=== PATIENT | female | born 1935 | race Caucasian/White ===

== ENCOUNTER 2017-08-23 10:52 | Inpatient (IN) | payer MEDICARE ==
[~2017-08-23] VITALS: Ht 154.9 cm; Wt 44.9 kg
[2017-08-23 11:38] LABS: BASO # 0.1 x10^3/uL (0.0-0.2); BASO % 1 % (0-3); EOS # 0.2 x10^3/uL (0.0-0.7); EOS % 2 % (0-3); HEMATOCRIT 45.9 % (36.0-47.0); HEMOGLOBIN 15.2 g/dL (12.0-15.5); LYMPH % 9 % (24-48); MEAN CORPUSCULAR HEMOGLOBIN 29 pg (25-35); MEAN CORPUSCULAR HGB CONC 33 g/dL (31-37); MEAN CORPUSCULAR VOLUME 87 fL (79-100); MONO % 9 % (0-9); NEUT % 80 % (31-73); PLATELET COUNT 249 x10^3/uL (140-400); RED BLOOD COUNT 5.26 x10^6/uL (3.50-5.40); RED CELL DISTRIBUTION WIDTH 15.5 % (11.5-14.5); WHITE BLOOD COUNT 11.3 x10^3/uL (4.0-11.0)
[2017-08-23 11:49] LABS: ALBUMIN 3.5 g/dL (3.4-5.0); ALBUMIN/GLOBULIN RATIO 0.7 (1.0-1.7); CALCIUM 9.7 mg/dL (8.5-10.1); CREATININE 1.1 mg/dL (0.6-1.0); GFR 47.6; MAGNESIUM 2.1 mg/dL (1.8-2.4); POTASSIUM 3.7 mmol/L (3.5-5.1); TOTAL BILIRUBIN 0.3 mg/dL (0.2-1.0); TOTAL PROTEIN 8.2 g/dL (6.4-8.2)
[2017-08-23 12:14] LABS: BACTERIA,URINE FEW /HPF (0-FEW); BILIRUBIN,URINE NEG (NEG); CLARITY,URINE CLEAR; COLOR,URINE YELLOW; GLUCOSE,URINE NEG (NEG); NITRITE,URINE NEG (NEG); RBC,URINE 0 /HPF (0-2); SQUAMOUS EPITHELIAL CELL,UR FEW /LPF; UROBILINOGEN,URINE 0.2 mg/dL (0.2 mg/dL); WBC,URINE 0 /HPF (0-4)
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
--- NOTE | 2017-08-23 12:29 | EKG ---
[address] [address] Test Date: 2017-08-23 Test Time: 12:20:56 Pat Name: CIELO HELTON Department: Room: Gender: F Stereotyper Helper: : 1935 Requested By: KIMI COLEMAN Order Number: [id number] Reading MD: Nilesh Abdul MD Measurements Intervals [place] Rate: 86 P: 55 IN: 184 QRS: 45 QRSD: 78 T: 67 QT: 374 QTc: 451 Interpretive Statements SINUS RHYTHM VENTRICULAR PREMATURE COMPLEX(ES) Electronically Signed On 08-27-2017 17:10:27 CDL DRIVER by Nilesh Abdul MD
[2017-08-23 13:52] VITALS: BP 159/103
[2017-08-23] MEDS ORDERED: MAG HYDROX/AL HYDROX/SIMETH 30 ML ORAL.SUSP PO PRN (14:00)
[2017-08-23] MEDS ORDERED: MAGNESIUM HYDROXIDE 2,400 MG/30 ML ORAL.SUSP. PO PRN (14:00)
[2017-08-23] MEDS ORDERED: METHYL SALICYLATE/MENTHOL TOPICAL OINTMENT 29GM TUBE. TP PRN (14:00)
[2017-08-23] MEDS ORDERED: METO25TA4 PO (14:33)
[2017-08-23] MEDS ORDERED: DONE5TAB7 PO (14:33)
[2017-08-23] MEDS ORDERED: CALC-30 PO (14:33)
[2017-08-23] MEDS ORDERED: DILT180C29 PO (14:33)
[2017-08-23] MEDS ORDERED: SIMV40TA3 PO (14:33)
[2017-08-23] MEDS ORDERED: SERT50TA PO (14:33)
[2017-08-23] MEDS ORDERED: VITA100022 PO (14:33)
[2017-08-23] MEDS ORDERED: VITA1CAP5 PO (14:33)
[2017-08-23 16:22] VITALS: BP 142/85
[2017-08-23] MEDS: ATORVASTATIN CALCIUM 20 MG TABLET PO SCH (21:56)
[2017-08-23] MEDS: METOPROLOL TART IMMED RELEASE 25 MG TABLET PO SCH (21:57)
[2017-08-24 03:18] LABS: T3 TOTAL 111 ng/dL (71-180); THYROXINE 8.3 ug/dL (4.5-12.0)
[2017-08-24 05:57] VITALS: BP 145/80
[2017-08-24 06:08] LABS: HEMOGLOBIN A1C 5.8 % (4.8-5.6)
[2017-08-24] MEDS ORDERED: PNEUMOC CONJ VACC 23-VALENT 0.5 ML VIAL. VAX IM ONE (09:00)
[2017-08-24] MEDS: POTASSIUM GLUCONATE 99 MG PO SCH (09:39)
--- NOTE | 2017-08-24 09:39 | PDOC ---
Exam Note: Cameron Note: Please also refer to the separate dictated note~for this date of service dictated separately.~Patient seen individually. Discussed the patient with Nursing staff reviewed the chart.~Reviewed interim history and current functioning. Reviewed vital signs,~Labs/ Radiology~and current medications noted below. Continue current treatment with the changes noted in the dictated addendum note. This is a late entry for date of service August 23, 2017 Assessment: Vital Signs: VS - Last 72 Hours, by Label Date Time Temp Pulse Resp B/P (MAP) Pulse Ox O2 Delivery O2 Flow Rate FiO2 08/24/17 05:57 97.7 67 16 145/80 (101) 94 08/23/17 21:57 84 132/63 08/23/17 16:22 97.9 77 18 142/85 (104) 94 Room Air 08/23/17 13:52 98.0 83 16 159/103 (121) 95 Room Air 08/23/17 11:00 98.0 90 18 96 Room Air Vital Signs Date Time Temp Pulse Resp B/P (MAP) Pulse Ox O2 Delivery O2 Flow Rate FiO2 08/24/17 05:57 97.7 67 16 145/80 (101) 94 08/23/17 16:22 Room Air I&O Intake and Output 08/24/17 07:00 Intake Total 720 ml Balance 720 ml Intake Oral 720 ml Labs: Laboratory Tests Test 08/23/17 11:22 08/23/17 11:30 White Blood Count 11.3 x10^3/uL (4.0-11.0) H Red Blood Count 5.26 x10^6/uL (3.50-5.40) Hemoglobin 15.2 g/dL (12.0-15.5) Hematocrit 45.9 % (36.0-47.0) Mean Corpuscular Volume 87 fL (79-100) Mean Corpuscular Hemoglobin 29 pg (25-35) Mean Corpuscular Hemoglobin Concent 33 g/dL (31-37) Red Cell Distribution Width 15.5 % (11.5-14.5) H Platelet Count 249 x10^3/uL (140-400) Neutrophils (%) (Auto) 80 % (31-73) H Lymphocytes (%) (Auto) 9 % (24-48) L Monocytes (%) (Auto) 9 % (0-9) Eosinophils (%) (Auto) 2 % (0-3) Basophils (%) (Auto) 1 % (0-3) Neutrophils # (Auto) 9.0 x10^3uL (1.8-7.7) H Lymphocytes # (Auto) 1.0 x10^3/uL (1.0-4.8) Monocytes # (Auto) 1.0 x10^3/uL (0.0-1.1) Eosinophils # (Auto) 0.2 x10^3/uL (0.0-0.7) Basophils # (Auto) 0.1 x10^3/uL (0.0-0.2) Sodium Level 137 mmol/L (136-145) Potassium Level 3.7 mmol/L (3.5-5.1) Chloride Level 99 mmol/L (98-107) Carbon Dioxide Level 28 mmol/L (21-32) Anion Gap 10 (6-14) Blood Urea Nitrogen 17 mg/dL (7-20) Creatinine 1.1 mg/dL (0.6-1.0) H Estimated GFR (Cockcroft-Gault) 47.6 BUN/Creatinine Ratio 15 (6-20) Glucose Level 113 mg/dL (70-99) H Hemoglobin A1c 5.8 % (4.8-5.6) H Calcium Level 9.7 mg/dL (8.5-10.1) Magnesium Level 2.1 mg/dL (1.8-2.4) Total Bilirubin 0.3 mg/dL (0.2-1.0) Aspartate Amino Transferase (AST) 24 U/L (15-37) Alanine Aminotransferase (ALT) 24 U/L (14-59) Alkaline Phosphatase 86 U/L (46-116) Total Protein 8.2 g/dL (6.4-8.2) Albumin 3.5 g/dL (3.4-5.0) Albumin/Globulin Ratio 0.7 (1.0-1.7) L Thyroxine (T4) 8.3 ug/dL (4.5-12.0) Total Triiodothyronine (TT3) 111 ng/dL (71-180) Rapid Plasma Reagin Non reactive (Non Reactive) Urine Collection Type Unknown Urine Color Yellow Urine Clarity Clear Urine pH 7.0 Urine Specific [place] 1.020 Urine Protein 100 mg/dl (NEG-TRACE) Urine Glucose (UA) Neg mg/dL (NEG) Urine Ketones (Stick) Neg mg/dL (NEG) Urine Blood Neg (NEG) Urine Nitrite Neg (NEG) Urine Bilirubin Neg (NEG) Urine Urobilinogen Dipstick 0.2 mg/dL (0.2 mg/dL) Urine Leukocyte Esterase Neg (NEG) Urine RBC 0 /HPF (0-2) Urine WBC 0 /HPF (0-4) Urine Squamous Epithelial Cells Few /LPF Urine Bacteria Few /HPF (0-FEW) Current Medications: Meds: Current Medications Acetaminophen (Tylenol) 650 mg PRN Q6HRS PRN PO PAIN / TEMP; Start 08/23/17 at 14:00 Multi-Ingredient Ointment (Analgesic [place]) 1 tyrone PRN QID PRN TP MUSCLE PAIN; Start 08/23/17 at 14:00 Al Hydroxide/Mg Hydroxide (Mylanta Plus Xs) 15 ml PRN AFTMEALHC PRN PO DYSPEPSIA; Start 08/23/17 at 14:00 Magnesium Hydroxide (Milk Of Magnesia) 2,400 mg PRN QHS PRN PO CONSTIPATION; Start 08/23/17 at 14:00 Nicotine (Nicoderm Cq 21mg) 1 patch DAILY TD ; Start 08/24/17 at 09:00 Donepezil HCl (Aricept) 5 mg DAILY PO ; Start 08/24/17 at 09:00 Sertraline HCl (Zoloft) 50 mg DAILY PO ; Start 08/24/17 at 09:00 Pneumococcal Polyvalent Vaccine (Pneumovax 23) 0.5 ml ONCE ONCE VAX IM ; Start 08/24/17 at 09:00; Stop 08/24/17 at 09:01; Status DC Diltiazem HCl (Cardizem 24hr Cd) 180 mg DAILY PO ; Start 08/24/17 at 09:00 Metoprolol Tartrate (Lopressor) 25 mg BID PO Last administered on 08/23/17at 21: 57; Start 08/23/17 at 21:00 Atorvastatin Calcium (Lipitor) 20 mg QHS PO Last administered on 08/23/17at 21: 56; Start 08/23/17 at 21:00 Calcium/Vitamin D (Oscal D 500mg/ 200uts) 1 tab DAILY PO ; Start 08/24/17 at 09: 00 Vitamin B Complex 1 cap DAILY PO ; Start 08/24/17 at 09:00 Vitamin E 1,000 unit DAILY PO ; Start 08/24/17 at 09:00 Non-Formulary Medication 1 ea QODAY PO ; Start 08/24/17 at 09:00 Active Scripts Active Reported Calcium 500 + Vit D 400 Tablet (Calcium Carbonate/Vitamin D3) 1 Each Tablet 1 Each PO DAILY Vitamin E (Vitamin E Acetate) 1,000 Unit Capsule 1,000 Unit PO DAILY B Complex With Vitamin C (Vitamin B Complex & Vit C No.3) 1 Each Capsule 1 Each PO DAILY Simvastatin 40 Mg Tablet 40 Mg PO HS Diltiazem 24HR Cd (Diltiazem Hcl) 180 Mg Cap.er.24h 180 Mg PO DAILY Metoprolol Tartrate 25 Mg Tablet 25 Mg PO BID Zoloft (Sertraline Hcl) 50 Mg Tablet 50 Mg PO DAILY Donepezil Hcl 5 Mg Tablet 5 Mg PO DAILY I have reviewed the current psychotropics carefully including drug interactions. Risk benefit ratio favors no change other than as noted in my dictated progress note. Diagnosis: Problems: (1) Dementia (2) Aggressive behavior (3) Medical clearance for psychiatric admission (4) Dementia with behavioral disturbance (5) Anxiety disorder (6) Dementia in Alzheimer's disease with delusions (7) Dementia in Alzheimer's disease with depression (8) Dementia, vascular, with delusions (9) Dementia, vascular, with depression (10) Impulse control disorder ANTONIA GARRIDO MD Aug 24, 2017 09:39
[2017-08-24] MEDS: VITAMIN B COMPLEX CAPSULE. PO SCH (09:40)
[2017-08-24] MEDS: VITAMIN E 1,000 UNIT CAPSULE. PO SCH (09:40)
[2017-08-24] MEDS: DONEPEZIL HCL 5 MG TABLET. PO SCH (09:41)
[2017-08-24] MEDS: METOPROLOL TART IMMED RELEASE 25 MG TABLET PO SCH ×2 (09:42→20:50)
[2017-08-24] MEDS: CALCIUM CARB/VIT D3 500/200 TABLET PO SCH (09:42)
[2017-08-24] MEDS: SERTRALINE 50 MG TABLET. PO SCH (09:43)
[2017-08-24] MEDS: NICOTINE 21MG PATCH. TD SCH (09:43)
[2017-08-24 11:06] LABS: THYROID STIM HORMONE (TSH) 1.898 uIU/mL (0.358-3.740)
[2017-08-24 16:10] VITALS: BP 130/78
[2017-08-24] MEDS: ATORVASTATIN CALCIUM 20 MG TABLET PO SCH (20:49)
--- NOTE | 2017-08-24 22:16 | PDOC ---
Exam Note: Cameron Note: Please also refer to the separate dictated note~for this date of service dictated separately.~Patient seen individually. Discussed the patient with Nursing staff reviewed the chart.~Reviewed interim history and current functioning. Reviewed vital signs,~Labs/ Radiology~and current medications noted below. Continue current treatment with the changes noted in the dictated addendum note Assessment: Vital Signs: Vital Signs Date Time Temp Pulse Resp B/P (MAP) Pulse Ox O2 Delivery O2 Flow Rate FiO2 08/24/17 20:50 71 130/78 08/24/17 16:10 97.8 18 94 08/23/17 16:22 Room Air I&O Intake and Output 08/24/17 07:00 Intake Total 720 ml Balance 720 ml Intake Oral 720 ml Current Medications: Meds: Current Medications Acetaminophen (Tylenol) 650 mg PRN Q6HRS PRN PO PAIN / TEMP; Start 08/23/17 at 14:00 Multi-Ingredient Ointment (Analgesic [place]) 1 tyrone PRN QID PRN TP MUSCLE PAIN; Start 08/23/17 at 14:00 Al Hydroxide/Mg Hydroxide (Mylanta Plus Xs) 15 ml PRN AFTMEALHC PRN PO DYSPEPSIA; Start 08/23/17 at 14:00 Magnesium Hydroxide (Milk Of Magnesia) 2,400 mg PRN QHS PRN PO CONSTIPATION; Start 08/23/17 at 14:00 Nicotine (Nicoderm Cq 21mg) 1 patch DAILY TD Last administered on 08/24/17at 09: 43; Start 08/24/17 at 09:00 Donepezil HCl (Aricept) 5 mg DAILY PO Last administered on 08/24/17at 09:41; Start 08/24/17 at 09:00 Sertraline HCl (Zoloft) 50 mg DAILY PO Last administered on 08/24/17at 09:43; Start 08/24/17 at 09:00 Pneumococcal Polyvalent Vaccine (Pneumovax 23) 0.5 ml ONCE ONCE VAX IM ; Start 08/24/17 at 09:00; Stop 08/24/17 at 09:01; Status DC Diltiazem HCl (Cardizem 24hr Cd) 180 mg DAILY PO Last administered on at 09:41; Start 08/24/17 at 09:00 Metoprolol Tartrate (Lopressor) 25 mg BID PO Last administered on 08/24/17at 20: 50; Start 08/23/17 at 21:00 Atorvastatin Calcium (Lipitor) 20 mg QHS PO Last administered on 08/24/17at 20: 49; Start 08/23/17 at 21:00 Calcium/Vitamin D (Oscal D 500mg/ 200uts) 1 tab DAILY PO Last administered on at 09:42; Start 08/24/17 at 09:00 Vitamin B Complex 1 cap DAILY PO Last administered on 08/24/17at 09:40; Start at 09:00 Vitamin E 1,000 unit DAILY PO Last administered on 08/24/17at 09:40; Start 08/24 at 09:00 Non-Formulary Medication 1 ea QODAY PO Last administered on 08/24/17at 09:39; Start 08/24/17 at 09:00 Ferrous Sulfate (Feosol) 325 mg DAILYWBKFT PO ; Start 08/25/17 at 08:00 Active Scripts Active Reported Calcium 500 + Vit D 400 Tablet (Calcium Carbonate/Vitamin D3) 1 Each Tablet 1 Each PO DAILY Vitamin E (Vitamin E Acetate) 1,000 Unit Capsule 1,000 Unit PO DAILY B Complex With Vitamin C (Vitamin B Complex & Vit C No.3) 1 Each Capsule 1 Each PO DAILY Simvastatin 40 Mg Tablet 40 Mg PO HS Diltiazem 24HR Cd (Diltiazem Hcl) 180 Mg Cap.er.24h 180 Mg PO DAILY Metoprolol Tartrate 25 Mg Tablet 25 Mg PO BID Zoloft (Sertraline Hcl) 50 Mg Tablet 50 Mg PO DAILY Donepezil Hcl 5 Mg Tablet 5 Mg PO DAILY I have reviewed the current psychotropics carefully including drug interactions. Risk benefit ratio favors no change other than as noted in my dictated progress note. Diagnosis: Problems: (1) Dementia (2) Aggressive behavior (3) Medical clearance for psychiatric admission (4) Dementia with behavioral disturbance (5) Anxiety disorder (6) Dementia in Alzheimer's disease with delusions (7) Dementia in Alzheimer's disease with depression (8) Dementia, vascular, with delusions (9) Dementia, vascular, with depression (10) Impulse control disorder ANTONIA GARRIDO MD Aug 24, 2017 22:15
[2017-08-25] MEDS: ACETAMINOPHEN 325 MG TABLET PO PRN (02:50)
[2017-08-25 06:10] VITALS: BP 142/77
[2017-08-25] MEDS: DONEPEZIL HCL 5 MG TABLET. PO SCH (07:54)
[2017-08-25] MEDS: VITAMIN B COMPLEX CAPSULE. PO SCH (07:54)
[2017-08-25] MEDS: FERROUS SULFATE 325 MG TABLET. PO SCH (07:54)
[2017-08-25] MEDS: VITAMIN E 1,000 UNIT CAPSULE. PO SCH (07:54)
[2017-08-25] MEDS: METOPROLOL TART IMMED RELEASE 25 MG TABLET PO SCH ×3 (07:55→20:07)
[2017-08-25] MEDS: CALCIUM CARB/VIT D3 500/200 TABLET PO SCH (07:55)
[2017-08-25] MEDS: SERTRALINE 50 MG TABLET. PO SCH (07:55)
[2017-08-25] MEDS: NICOTINE 21MG PATCH. TD SCH (07:56)
[2017-08-25 08:05] VITALS: BP 124/80
[2017-08-25 12:05] VITALS: BP 144/77
[2017-08-25 16:12] VITALS: BP 155/83
--- NOTE | 2017-08-25 20:04 | PDOC ---
Exam Note: Cameron Note: Please also refer to the separate dictated note~for this date of service dictated separately.~Patient seen individually. Discussed the patient with Nursing staff reviewed the chart.~Reviewed interim history and current functioning. Reviewed vital signs,~Labs/ Radiology~and current medications noted below. Continue current treatment with the changes noted in the dictated addendum note Assessment: Vital Signs: Vital Signs Date Time Temp Pulse Resp B/P (MAP) Pulse Ox O2 Delivery O2 Flow Rate FiO2 08/25/17 16:12 97.8 66 18 155/83 (107) 94 Room Air I&O Intake and Output 08/25/17 07:00 Intake Total 960 ml Balance 960 ml Intake Oral 960 ml Current Medications: Meds: Current Medications Acetaminophen (Tylenol) 650 mg PRN Q6HRS PRN PO PAIN / TEMP Last administered on 08/25/17at 02:50; Start 08/23/17 at 14:00 Multi-Ingredient Ointment (Analgesic [place]) 1 tyrone PRN QID PRN TP MUSCLE PAIN; Start 08/23/17 at 14:00 Al Hydroxide/Mg Hydroxide (Mylanta Plus Xs) 15 ml PRN AFTMEALHC PRN PO DYSPEPSIA; Start 08/23/17 at 14:00 Magnesium Hydroxide (Milk Of Magnesia) 2,400 mg PRN QHS PRN PO CONSTIPATION; Start 08/23/17 at 14:00 Nicotine (Nicoderm Cq 21mg) 1 patch DAILY TD Last administered on 08/25/17at 07: 56; Start 08/24/17 at 09:00 Donepezil HCl (Aricept) 5 mg DAILY PO Last administered on 08/25/17at 07:54; Start 08/24/17 at 09:00 Sertraline HCl (Zoloft) 50 mg DAILY PO Last administered on 08/25/17at 07:55; Start 08/24/17 at 09:00; Stop 08/25/17 at 09:10; Status DC Pneumococcal Polyvalent Vaccine (Pneumovax 23) 0.5 ml ONCE ONCE VAX IM ; Start 08/24/17 at 09:00; Stop 08/24/17 at 09:01; Status DC Diltiazem HCl (Cardizem 24hr Cd) 180 mg DAILY PO Last administered on at 07:54; Start 08/24/17 at 09:00 Metoprolol Tartrate (Lopressor) 25 mg BID PO Last administered on 08/25/17at 12: 16; Start 08/23/17 at 21:00 Atorvastatin Calcium (Lipitor) 20 mg QHS PO Last administered on 08/24/17at 20: 49; Start 08/23/17 at 21:00 Calcium/Vitamin D (Oscal D 500mg/ 200uts) 1 tab DAILY PO Last administered on at 07:55; Start 08/24/17 at 09:00 Vitamin B Complex 1 cap DAILY PO Last administered on 08/25/17at 07:54; Start at 09:00 Vitamin E 1,000 unit DAILY PO Last administered on 08/25/17at 07:54; Start 08/24 at 09:00 Non-Formulary Medication 1 ea QODAY PO Last administered on 08/24/17at 09:39; Start 08/24/17 at 09:00 Ferrous Sulfate (Feosol) 325 mg DAILYWBKFT PO Last administered on 08/25/17at 07 :54; Start 08/25/17 at 08:00 Sertraline HCl (Zoloft) 75 mg DAILY PO ; Start 08/26/17 at 09:00 Active Scripts Active Reported Calcium 500 + Vit D 400 Tablet (Calcium Carbonate/Vitamin D3) 1 Each Tablet 1 Each PO DAILY Vitamin E (Vitamin E Acetate) 1,000 Unit Capsule 1,000 Unit PO DAILY B Complex With Vitamin C (Vitamin B Complex & Vit C No.3) 1 Each Capsule 1 Each PO DAILY Simvastatin 40 Mg Tablet 40 Mg PO HS Diltiazem 24HR Cd (Diltiazem Hcl) 180 Mg Cap.er.24h 180 Mg PO DAILY Metoprolol Tartrate 25 Mg Tablet 25 Mg PO BID Zoloft (Sertraline Hcl) 50 Mg Tablet 50 Mg PO DAILY Donepezil Hcl 5 Mg Tablet 5 Mg PO DAILY I have reviewed the current psychotropics carefully including drug interactions. Risk benefit ratio favors no change other than as noted in my dictated progress note. Diagnosis: Problems: (1) Dementia (2) Aggressive behavior (3) Dementia with behavioral disturbance (4) Anxiety disorder (5) Dementia in Alzheimer's disease with delusions (6) Dementia in Alzheimer's disease with depression (7) Dementia, vascular, with delusions (8) Dementia, vascular, with depression (9) Impulse control disorder ANTONIA GARRIDO MD Aug 25, 2017 20:04
[2017-08-25] MEDS: ATORVASTATIN CALCIUM 20 MG TABLET PO SCH (20:07)
--- NOTE | 2017-08-25 21:02 | PN ---
DATE: 08/24/2017 This note covers elements not covered in my initial note 08/24/2017. I met with the patient evening of 08/24/2017 in her room. She has been somewhat withdrawn, anxious, labile at times. REVIEW OF SYSTEMS: No CV, , pulmonary, eye, ENT system symptoms on review. Reliability poor. MENTAL STATUS EXAM: Oriented to herself. Insight, judgment, recent and remote memory, attention, concentration, fund of knowledge poor, consistent with her diagnosis mentioned in my initial note. IMPRESSION: Major neurocognitive disorder, Alzheimer, vascular with delusion, depression, behavioral disturbance. Rest unchanged. PLAN: Continue current psychotropics, Aricept and Zoloft. We will increase her Zoloft to 75 mg a day. MAN Christiane GARRIDO MD DR: CHRISTINA/carloz JOB#: [id number] / [id number]
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
[2017-08-26 06:01] VITALS: BP 154/88
[2017-08-26] MEDS: FERROUS SULFATE 325 MG TABLET. PO SCH (07:28)
[2017-08-26] MEDS: VITAMIN B COMPLEX CAPSULE. PO SCH (07:30)
[2017-08-26] MEDS: POTASSIUM GLUCONATE 99 MG PO SCH (07:30)
[2017-08-26] MEDS: VITAMIN E 1,000 UNIT CAPSULE. PO SCH (07:31)
[2017-08-26] MEDS: DONEPEZIL HCL 5 MG TABLET. PO SCH (07:31)
[2017-08-26] MEDS: CALCIUM CARB/VIT D3 500/200 TABLET PO SCH (07:32)
[2017-08-26] MEDS: METOPROLOL TART IMMED RELEASE 25 MG TABLET PO SCH ×2 (07:32→20:34)
[2017-08-26] MEDS: SERTRALINE 50 MG TABLET. PO SCH (07:33)
[2017-08-26] MEDS: NICOTINE 21MG PATCH. TD SCH (07:33)
[2017-08-26] MEDS ORDERED: PNEUMOC CONJ VACC 23-VALENT 0.5 ML VIAL. VAX IM ONE (09:45)
[2017-08-26 15:59] VITALS: BP 158/98
[2017-08-26] MEDS: CHOLECALCIFEROL (VITAMIN D3) 50,000 UNIT CAPSULE PO SCH (18:08)
--- NOTE | 2017-08-26 20:01 | PDOC ---
Exam Note: Cameron Note: Please also refer to the separate dictated note~for this date of service dictated separately.~Patient seen individually. Discussed the patient with Nursing staff reviewed the chart.~Reviewed interim history and current functioning. Reviewed vital signs,~Labs/ Radiology~and current medications noted below. Continue current treatment with the changes noted in the dictated addendum note Assessment: Vital Signs: Vital Signs Date Time Temp Pulse Resp B/P (MAP) Pulse Ox O2 Delivery O2 Flow Rate FiO2 08/26/17 15:59 97.3 68 20 158/98 (118) 96 08/25/17 16:12 Room Air I&O Intake and Output 08/26/17 07:00 Intake Total 1320 ml Balance 1320 ml Intake Oral 1320 ml # Voids 1 Current Medications: Meds: Current Medications Acetaminophen (Tylenol) 650 mg PRN Q6HRS PRN PO PAIN / TEMP Last administered on 08/25/17at 02:50; Start 08/23/17 at 14:00 Multi-Ingredient Ointment (Analgesic [place]) 1 tyrone PRN QID PRN TP MUSCLE PAIN; Start 08/23/17 at 14:00 Al Hydroxide/Mg Hydroxide (Mylanta Plus Xs) 15 ml PRN AFTMEALHC PRN PO DYSPEPSIA; Start 08/23/17 at 14:00 Magnesium Hydroxide (Milk Of Magnesia) 2,400 mg PRN QHS PRN PO CONSTIPATION; Start 08/23/17 at 14:00 Nicotine (Nicoderm Cq 21mg) 1 patch DAILY TD Last administered on 08/26/17at 07: 33; Start 08/24/17 at 09:00 Donepezil HCl (Aricept) 5 mg DAILY PO Last administered on 08/26/17at 07:31; Start 08/24/17 at 09:00 Sertraline HCl (Zoloft) 50 mg DAILY PO Last administered on 08/25/17at 07:55; Start 08/24/17 at 09:00; Stop 08/25/17 at 09:10; Status DC Pneumococcal Polyvalent Vaccine (Pneumovax 23) 0.5 ml ONCE ONCE VAX IM ; Start 08/24/17 at 09:00; Stop 08/24/17 at 09:01; Status DC Diltiazem HCl (Cardizem 24hr Cd) 180 mg DAILY PO Last administered on 07:31; Start 08/24/17 at 09:00 Metoprolol Tartrate (Lopressor) 25 mg BID PO Last administered on 08/26/17 07: 32; Start 08/23/17 at 21:00 Atorvastatin Calcium (Lipitor) 20 mg QHS PO Last administered on 08/25/17 20: 07; Start 08/23/17 at 21:00 Calcium/Vitamin D (Oscal D 500mg/ 200uts) 1 tab DAILY PO Last administered on 07:32; Start 08/24/17 at 09:00 Vitamin B Complex 1 cap DAILY PO Last administered on 08/26/17 07:30; Start at 09:00 Vitamin E 1,000 unit DAILY PO Last administered on 08/26/17 07:31; Start 08/24 at 09:00 Non-Formulary Medication 1 ea QODAY PO Last administered on 08/26/17 07:30; Start 08/24/17 at 09:00 Ferrous Sulfate (Feosol) 325 mg DAILYWBKFT PO Last administered on 08/26/17 07 :28; Start 08/25/17 at 08:00 Sertraline HCl (Zoloft) 75 mg DAILY PO Last administered on 08/26/17 07:33; Start 08/26/17 at 09:00 Pneumococcal Polyvalent Vaccine (Pneumovax 23) 0.5 ml ONCE ONCE VAX IM Last administered on 08/26/17 09:50; Start 08/26/17 at 09:45; Stop 08/26/17 at 09:46 ; Status DC Vitamin D (Vitamin D3) 50,000 unit WEEKLY PO Last administered on 08/26/17 18: 08; Start 08/26/17 at 18:00 Active Scripts Active Reported Calcium 500 + Vit D 400 Tablet (Calcium Carbonate/Vitamin D3) 1 Each Tablet 1 Each PO DAILY Vitamin E (Vitamin E Acetate) 1,000 Unit Capsule 1,000 Unit PO DAILY B Complex With Vitamin C (Vitamin B Complex & Vit C No.3) 1 Each Capsule 1 Each PO DAILY Simvastatin 40 Mg Tablet 40 Mg PO HS Diltiazem 24HR Cd (Diltiazem Hcl) 180 Mg Cap.er.24h 180 Mg PO DAILY Metoprolol Tartrate 25 Mg Tablet 25 Mg PO BID Zoloft (Sertraline Hcl) 50 Mg Tablet 50 Mg PO DAILY Donepezil Hcl 5 Mg Tablet 5 Mg PO DAILY I have reviewed the current psychotropics carefully including drug interactions. Risk benefit ratio favors no change other than as noted in my dictated progress note. Diagnosis: Problems: (1) Dementia (2) Aggressive behavior (3) Medical clearance for psychiatric admission (4) Dementia with behavioral disturbance (5) Anxiety disorder (6) Dementia in Alzheimer's disease with delusions (7) Dementia in Alzheimer's disease with depression (8) Dementia, vascular, with delusions (9) Dementia, vascular, with depression (10) Impulse control disorder ANTONIA GARRIDO MD Aug 26, 2017 20:01
[2017-08-26] MEDS: ATORVASTATIN CALCIUM 20 MG TABLET PO SCH (20:34)
[2017-08-27 06:12] VITALS: BP 180/93
[2017-08-27] MEDS: SERTRALINE 50 MG TABLET. PO SCH (08:24)
[2017-08-27] MEDS: VITAMIN E 1,000 UNIT CAPSULE. PO SCH (08:24)
[2017-08-27] MEDS: METOPROLOL TART IMMED RELEASE 25 MG TABLET PO SCH ×2 (08:24→20:47)
[2017-08-27] MEDS: FERROUS SULFATE 325 MG TABLET. PO SCH (08:24)
[2017-08-27] MEDS: VITAMIN B COMPLEX CAPSULE. PO SCH (08:24)
[2017-08-27] MEDS: CALCIUM CARB/VIT D3 500/200 TABLET PO SCH (08:24)
[2017-08-27] MEDS: DONEPEZIL HCL 5 MG TABLET. PO SCH (08:24)
[2017-08-27] MEDS: NICOTINE 21MG PATCH. TD SCH (08:25)
[2017-08-27] MEDS: ACETAMINOPHEN 325 MG TABLET PO PRN (08:37)
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
[2017-08-27 15:57] VITALS: BP 134/74
[2017-08-27] MEDS: ATORVASTATIN CALCIUM 20 MG TABLET PO SCH (20:47)
--- NOTE | 2017-08-28 00:35 | PN ---
DATE: 08/25/2017 This is a late entry for 08/25/2017 with the elements not covered in my initial note of 08/25/2017. SUBJECTIVE: I met with the patient the evening of 08/25/2017 in her room. She remains withdrawn, somewhat depressed, isolative, confused. REVIEW OF SYSTEMS: No CV, , pulmonary, eye, ENT system symptoms reviewed. Reliability poor. MENTAL STATUS EXAMINATION: Oriented to herself. Insight, judgment, recent and remote memory, attention, concentration, fund of knowledge poor, consistent with her diagnosis mentioned in my initial note. PLAN: Continue Aricept and Zoloft. We will increase these clinically ____ Seroquel if psychotic symptoms evident. ANTONIA GARRIDO MD DR: CHRISTINA/carloz JOB#: [id number] / [id number]
[2017-08-28 05:59] VITALS: BP 159/76
[2017-08-28] MEDS: CALCIUM CARB/VIT D3 500/200 TABLET PO SCH (08:02)
[2017-08-28] MEDS: FERROUS SULFATE 325 MG TABLET. PO SCH (08:03)
[2017-08-28] MEDS: VITAMIN B COMPLEX CAPSULE. PO SCH (08:03)
[2017-08-28] MEDS: NICOTINE 21MG PATCH. TD SCH (08:03)
[2017-08-28] MEDS: VITAMIN E 1,000 UNIT CAPSULE. PO SCH (08:03)
[2017-08-28] MEDS: DONEPEZIL HCL 5 MG TABLET. PO SCH (08:03)
[2017-08-28] MEDS: METOPROLOL TART IMMED RELEASE 25 MG TABLET PO SCH ×2 (08:03→20:01)
[2017-08-28] MEDS: SERTRALINE 50 MG TABLET. PO SCH (08:03)
[2017-08-28] MEDS: POTASSIUM GLUCONATE 99 MG PO SCH (08:06)
[2017-08-28 15:57] VITALS: BP 167/90
--- NOTE | 2017-08-28 16:47 | PN ---
DATE: 08/27/2017 SUBJECTIVE: The patient was seen today, met with the staff, chart reviewed. The patient's behavior remains the same, still withdrawn, increased sleep, depressed. No aggressive behaviors. OBSERVATION: VITAL SIGNS: Temperature 97.9, blood pressure 180/93, pulse 80, respiration 18, O2 sat 97%. Slept about 7 hours last night. The patient did not have any falls. No side effects to the medications. She is currently on Zoloft 75 mg daily and Aricept 5 mg daily. The patient's lab reviewed. ASSESSMENT: Major neurocognitive disorder, vascular with delusions, depression, and behavioral disturbances. PLAN: Continue with the treatment. GARRETT FERRARO MD DR: YONATHAN/carloz JOB#: [id number] / [id number]
[2017-08-28] MEDS: ATORVASTATIN CALCIUM 20 MG TABLET PO SCH (20:01)
[2017-08-28] MEDS: ACETAMINOPHEN 325 MG TABLET PO PRN (22:46)
[2017-08-29 06:04] VITALS: BP 162/77
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
[2017-08-29 07:25] LABS: BASO # 0.2 x10^3/uL (0.0-0.2); BASO % 2 % (0-3); EOS # 0.2 x10^3/uL (0.0-0.7); EOS % 3 % (0-3); HEMATOCRIT 41.5 % (36.0-47.0); HEMOGLOBIN 13.8 g/dL (12.0-15.5); LYMPH # 1.2 x10^3/uL (1.0-4.8); LYMPH % 13 % (24-48); MEAN CORPUSCULAR HEMOGLOBIN 29 pg (25-35); MEAN CORPUSCULAR HGB CONC 33 g/dL (31-37); MEAN CORPUSCULAR VOLUME 88 fL (79-100); MONO # 0.8 x10^3/uL (0.0-1.1); MONO % 9 % (0-9); NEUT # 6.5 x10^3uL (1.8-7.7); NEUT % 73 % (31-73); PLATELET COUNT 219 x10^3/uL (140-400); RED BLOOD COUNT 4.71 x10^6/uL (3.50-5.40); RED CELL DISTRIBUTION WIDTH 15.3 % (11.5-14.5)
[2017-08-29 07:45] LABS: ALBUMIN 2.8 g/dL (3.4-5.0); ALBUMIN/GLOBULIN RATIO 0.7 (1.0-1.7); CALCIUM 8.5 mg/dL (8.5-10.1); CREATININE 1.1 mg/dL (0.6-1.0); GFR 47.6; MAGNESIUM 1.9 mg/dL (1.8-2.4); POTASSIUM 3.9 mmol/L (3.5-5.1); TOTAL BILIRUBIN 0.3 mg/dL (0.2-1.0); TOTAL PROTEIN 6.7 g/dL (6.4-8.2)
[2017-08-29] MEDS: DONEPEZIL HCL 5 MG TABLET. PO SCH (08:04)
[2017-08-29] MEDS: FERROUS SULFATE 325 MG TABLET. PO SCH (08:04)
[2017-08-29] MEDS: VITAMIN B COMPLEX CAPSULE. PO SCH (08:04)
[2017-08-29] MEDS: CALCIUM CARB/VIT D3 500/200 TABLET PO SCH (08:05)
[2017-08-29] MEDS: SERTRALINE 50 MG TABLET. PO SCH (08:05)
[2017-08-29] MEDS: NICOTINE 21MG PATCH. TD SCH ×2 (08:06→08:17)
[2017-08-29] MEDS: METOPROLOL TART IMMED RELEASE 25 MG TABLET PO SCH ×2 (08:06→21:07)
[2017-08-29] MEDS: VITAMIN E 1,000 UNIT CAPSULE. PO SCH (08:08)
[2017-08-29] MEDS ORDERED: FLU VACC QS2017-18 (36MOS+)/PF 0.5 ML SYRINGE. VAX IM ONE (09:00)
[2017-08-29 16:01] VITALS: BP 149/83
[2017-08-29] MEDS: ATORVASTATIN CALCIUM 20 MG TABLET PO SCH (21:07)
[2017-08-30 06:10] VITALS: BP 131/82
[2017-08-30] MEDS: NICOTINE 21MG PATCH. TD SCH ×2 (09:00→09:45)
[2017-08-30] MEDS: CALCIUM CARB/VIT D3 500/200 TABLET PO SCH (09:45)
[2017-08-30] MEDS: VITAMIN B COMPLEX CAPSULE. PO SCH (09:46)
[2017-08-30] MEDS: VITAMIN E 1,000 UNIT CAPSULE. PO SCH (09:46)
[2017-08-30] MEDS: FERROUS SULFATE 325 MG TABLET. PO SCH (09:46)
[2017-08-30] MEDS: DONEPEZIL HCL 5 MG TABLET. PO SCH (09:46)
[2017-08-30] MEDS: METOPROLOL TART IMMED RELEASE 25 MG TABLET PO SCH ×2 (09:46→19:39)
[2017-08-30] MEDS: SERTRALINE 50 MG TABLET. PO SCH (09:47)
[2017-08-30] MEDS: POTASSIUM GLUCONATE 99 MG PO SCH (09:50)
--- NOTE | 2017-08-30 11:15 | PN ---
DATE: 08/29/2017 SUBJECTIVE: The patient was seen today, met with the staff, chart reviewed. The patient continues to show improvement, has been participating in activities, not exhibiting any side effects. The patient has not verbalized any aggressive behaviors. MEDICATIONS: The patient's current medications include Zoloft 75 mg daily and Aricept 5 mg daily. The patient's lab reviewed. IMPRESSION: Major neurocognitive disorder, vascular with delusions, depression and behavioral disturbances. PLAN: Continue with the treatment. The patient is planned for discharge next week, probably to [facility]. GARRETT FERRARO MD DR: YONATHAN/carloz JOB#: [id number] / [id number]
[2017-08-30 15:25] VITALS: BP 145/81
[2017-08-30] MEDS: ATORVASTATIN CALCIUM 20 MG TABLET PO SCH (19:38)
[2017-08-31 06:13] VITALS: BP 167/82
[2017-08-31] MEDS: DONEPEZIL HCL 5 MG TABLET. PO SCH (08:01)
[2017-08-31] MEDS: FERROUS SULFATE 325 MG TABLET. PO SCH (08:01)
[2017-08-31] MEDS: VITAMIN B COMPLEX CAPSULE. PO SCH (08:01)
[2017-08-31] MEDS: VITAMIN E 1,000 UNIT CAPSULE. PO SCH (08:01)
[2017-08-31] MEDS: SERTRALINE 50 MG TABLET. PO SCH (08:06)
[2017-08-31] MEDS: CALCIUM CARB/VIT D3 500/200 TABLET PO SCH (08:06)
[2017-08-31] MEDS: NICOTINE 21MG PATCH. TD SCH (08:06)
[2017-08-31] MEDS: METOPROLOL TART IMMED RELEASE 25 MG TABLET PO SCH ×2 (08:06→20:05)
--- NOTE | 2017-08-31 14:42 | PN ---
DATE: 08/30/2017 SUBJECTIVE: The patient was seen today, met with the staff, chart reviewed. The patient has been motivated and participating in activities, not presented with any major behavior problems. OBSERVATION: VITAL SIGNS: Temperature 98.1, blood pressure 131/82, pulse 70, respirations 16, O2 sat 95%. Slept about 7-1/2 hours last night. The patient's appetite has improved. MEDICATIONS: The patient's lab reviewed. Her current medications include Zoloft 75 mg daily and Aricept 5 mg daily. ASSESSMENT: Major neurocognitive disorder, vascular with delusions, depression, behavioral disturbances. PLAN: To continue with the treatment. The patient is planned for discharge next week to [facility]. GARRETT FERRARO MD DR: YONATHAN/nts JOB#: [id number] / [id number]
[2017-08-31 15:58] VITALS: BP 143/83
[2017-08-31] MEDS: ATORVASTATIN CALCIUM 20 MG TABLET PO SCH (20:05)
[2017-09-01 06:11] VITALS: BP 154/88
[2017-09-01] MEDS: FERROUS SULFATE 325 MG TABLET. PO SCH (07:56)
[2017-09-01] MEDS: POTASSIUM GLUCONATE 99 MG PO SCH (07:57)
[2017-09-01] MEDS: VITAMIN B COMPLEX CAPSULE. PO SCH (07:58)
[2017-09-01] MEDS: VITAMIN E 1,000 UNIT CAPSULE. PO SCH (07:58)
[2017-09-01] MEDS: DONEPEZIL HCL 5 MG TABLET. PO SCH (07:58)
[2017-09-01] MEDS: SERTRALINE 50 MG TABLET. PO SCH (07:59)
[2017-09-01] MEDS: CALCIUM CARB/VIT D3 500/200 TABLET PO SCH (07:59)
[2017-09-01] MEDS: METOPROLOL TART IMMED RELEASE 25 MG TABLET PO SCH ×2 (07:59→21:28)
[2017-09-01] MEDS: NICOTINE 21MG PATCH. TD SCH (08:00)
[2017-09-01 16:20] VITALS: BP 150/76
--- NOTE | 2017-09-01 20:00 | PDOC ---
Exam Note: Cameron Note: Please also refer to the separate dictated note~for this date of service dictated separately.~Patient seen individually. Discussed the patient with Nursing staff reviewed the chart.~Reviewed interim history and current functioning. Reviewed vital signs,~Labs/ Radiology~and current medications noted below. Continue current treatment with the changes noted in the dictated addendum note Assessment: Vital Signs: Vital Signs Date Time Temp Pulse Resp B/P (MAP) Pulse Ox O2 Delivery O2 Flow Rate FiO2 09/01/17 16:20 98.0 67 16 150/76 (100) 95 09/01/17 06:11 Room Air I&O Intake and Output 09/01/17 07:00 Intake Total 505 ml Balance 505 ml Intake Oral 505 ml # Bowel Movements 1 Current Medications: Meds: Current Medications Acetaminophen (Tylenol) 650 mg PRN Q6HRS PRN PO PAIN / TEMP Last administered on 08/28/17at 22:46; Start 08/23/17 at 14:00 Multi-Ingredient Ointment (Analgesic [place]) 1 tyrone PRN QID PRN TP MUSCLE PAIN; Start 08/23/17 at 14:00 Al Hydroxide/Mg Hydroxide (Mylanta Plus Xs) 15 ml PRN AFTMEALHC PRN PO DYSPEPSIA; Start 08/23/17 at 14:00 Magnesium Hydroxide (Milk Of Magnesia) 2,400 mg PRN QHS PRN PO CONSTIPATION; Start 08/23/17 at 14:00 Nicotine (Nicoderm Cq 21mg) 1 patch DAILY TD Last administered on 09/01/17at 08: 00; Start 08/24/17 at 09:00 Donepezil HCl (Aricept) 5 mg DAILY PO Last administered on 09/01/17at 07:58; Start 08/24/17 at 09:00 Sertraline HCl (Zoloft) 50 mg DAILY PO Last administered on 08/25/17at 07:55; Start 08/24/17 at 09:00; Stop 08/25/17 at 09:10; Status DC Pneumococcal Polyvalent Vaccine (Pneumovax 23) 0.5 ml ONCE ONCE VAX IM ; Start 08/24/17 at 09:00; Stop 08/24/17 at 09:01; Status DC Diltiazem HCl (Cardizem 24hr Cd) 180 mg DAILY PO Last administered on 08/29/17 08:06; Start 08/24/17 at 09:00; Stop 08/29/17 at 17:24; Status DC Metoprolol Tartrate (Lopressor) 25 mg BID PO Last administered on 09/01/17 07: 59; Start 08/23/17 at 21:00 Atorvastatin Calcium (Lipitor) 20 mg QHS PO Last administered on 08/31/17 20:05 ; Start 08/23/17 at 21:00 Calcium/Vitamin D (Oscal D 500mg/ 200uts) 1 tab DAILY PO Last administered on 07:59; Start 08/24/17 at 09:00 Vitamin B Complex 1 cap DAILY PO Last administered on 09/01/17 07:58; Start at 09:00 Vitamin E 1,000 unit DAILY PO Last administered on 09/01/17 07:58; Start at 09:00 Non-Formulary Medication 1 ea QODAY PO Last administered on 09/01/17 07:57; Start 08/24/17 at 09:00 Ferrous Sulfate (Feosol) 325 mg DAILYWBKFT PO Last administered on 09/01/17 07: 56; Start 08/25/17 at 08:00 Sertraline HCl (Zoloft) 75 mg DAILY PO Last administered on 09/01/17 07:59; Start 08/26/17 at 09:00 Pneumococcal Polyvalent Vaccine (Pneumovax 23) 0.5 ml ONCE ONCE VAX IM Last administered on 08/26/17 09:50; Start 08/26/17 at 09:45; Stop 08/26/17 at 09:46 ; Status DC Vitamin D (Vitamin D3) 50,000 unit WEEKLY PO Last administered on 08/26/17 18: 08; Start 08/26/17 at 18:00 Influenza Virus Vaccine Quadrival (Fluarix Quad [id number] Syringe) 0.5 ml ONCE ONCE VAX IM Last administered on 08/29/17 09:48; Start 08/29/17 at 09:00; Stop 08/29/17 at 09:01; Status DC Diltiazem HCl (Cardizem 24hr Cd) 240 mg DAILY PO Last administered on 09/01/17 07:58; Start 08/30/17 at 09:00 Active Scripts Active Reported Calcium 500 + Vit D 400 Tablet (Calcium Carbonate/Vitamin D3) 1 Each Tablet 1 Each PO DAILY Vitamin E (Vitamin E Acetate) 1,000 Unit Capsule 1,000 Unit PO DAILY B Complex With Vitamin C (Vitamin B Complex & Vit C No.3) 1 Each Capsule 1 Each PO DAILY Simvastatin 40 Mg Tablet 40 Mg PO HS Diltiazem 24HR Cd (Diltiazem Hcl) 180 Mg Cap.er.24h 180 Mg PO DAILY Metoprolol Tartrate 25 Mg Tablet 25 Mg PO BID Zoloft (Sertraline Hcl) 50 Mg Tablet 50 Mg PO DAILY Donepezil Hcl 5 Mg Tablet 5 Mg PO DAILY I have reviewed the current psychotropics carefully including drug interactions. Risk benefit ratio favors no change other than as noted in my dictated progress note. Diagnosis: Problems: (1) Dementia (2) Aggressive behavior (3) Dementia with behavioral disturbance (4) Anxiety disorder (5) Dementia in Alzheimer's disease with delusions (6) Dementia in Alzheimer's disease with depression (7) Dementia, vascular, with delusions (8) Dementia, vascular, with depression (9) Impulse control disorder ANTONIA GARRIDO MD Sep 01, 2017 20:00
[2017-09-01] MEDS: ATORVASTATIN CALCIUM 20 MG TABLET PO SCH (21:35)
--- NOTE | 2017-09-01 23:19 | PN ---
DATE: 08/31/2017 I am covering for Dr. Ellis. SUBJECTIVE: This is an 82-year-old female has had a history of dementia, but today she has been somewhat violent. Otherwise, she denies any medical complaints. She is calm and cooperative. OBJECTIVE: GENERAL: Well-developed, well-nourished white female, not in acute distress. VITAL SIGNS: Blood pressure 143/83, respiratory rate 18, pulse 77, temperature 97.4, oxygen saturation 95% on room air. HEENT: Normocephalic, atraumatic, otherwise unremarkable. NECK: Supple. Negative for carotid bruit, lymphadenopathy or thyromegaly. CHEST: Clear to A and P. CARDIOVASCULAR: Regular rhythm, normal S1, S2. ABDOMEN: Soft. Bowel sounds positive. EXTREMITIES: Negative for cyanosis, clubbing or pitting edema. NEUROLOGIC: The patient is alert to herself. Cranial nerves are intact. No focal motor or sensory deficit. Deep tendon reflexes were symmetric and hypoactive without pathology responses. IMPRESSION: Dementia, depression, behavioral disturbances, and sometimes delusion. Obsessive compulsive disorder, hypertension, hyperlipidemia, fracture of the hip, history of hypothyroidism, myocardial infarction and transient ischemic attack. RECOMMENDATIONS: Continue with current management initiated by Dr. Ellis and medications include Zoloft 75 mg daily and Aricept 5 mg daily. Will continue with current management initiated by Dr. Ellis. The patient has been scheduled for discharge next week. M David STERLING MD DR: EPI/carloz JOB#: [id number] / [id number]
[2017-09-02 06:06] VITALS: BP 181/96
[2017-09-02 08:03] VITALS: BP 166/89
[2017-09-02] MEDS: VITAMIN E 1,000 UNIT CAPSULE. PO SCH (08:10)
[2017-09-02] MEDS: CHOLECALCIFEROL (VITAMIN D3) 50,000 UNIT CAPSULE PO SCH (08:10)
[2017-09-02] MEDS: CALCIUM CARB/VIT D3 500/200 TABLET PO SCH (08:11)
[2017-09-02] MEDS: METOPROLOL TART IMMED RELEASE 25 MG TABLET PO SCH ×2 (08:11→20:33)
[2017-09-02] MEDS: DONEPEZIL HCL 5 MG TABLET. PO SCH (08:11)
[2017-09-02] MEDS: VITAMIN B COMPLEX CAPSULE. PO SCH (08:11)
[2017-09-02] MEDS: SERTRALINE 50 MG TABLET. PO SCH (08:11)
[2017-09-02] MEDS: FERROUS SULFATE 325 MG TABLET. PO SCH (08:11)
[2017-09-02] MEDS: NICOTINE 21MG PATCH. TD SCH (08:12)
[2017-09-02 16:25] VITALS: BP 133/73
[2017-09-02] MEDS: ATORVASTATIN CALCIUM 20 MG TABLET PO SCH (20:33)
--- NOTE | 2017-09-02 21:17 | PDOC ---
Exam Note: Cameron Note: Please also refer to the separate dictated note~for this date of service dictated separately.~Patient seen individually. Discussed the patient with Nursing staff reviewed the chart.~Reviewed interim history and current functioning. Reviewed vital signs,~Labs/ Radiology~and current medications noted below. Continue current treatment with the changes noted in the dictated addendum note Assessment: Vital Signs: Vital Signs Date Time Temp Pulse Resp B/P (MAP) Pulse Ox O2 Delivery O2 Flow Rate FiO2 09/02/17 20:33 65 133/73 09/02/17 16:25 97.1 18 95 09/01/17 06:11 Room Air I&O Intake and Output 09/02/17 07:00 Intake Total 1320 ml Balance 1320 ml Intake Oral 1320 ml # Voids 1 Current Medications: Meds: Current Medications Acetaminophen (Tylenol) 650 mg PRN Q6HRS PRN PO PAIN / TEMP Last administered on 08/28/17at 22:46; Start 08/23/17 at 14:00 Multi-Ingredient Ointment (Analgesic [place]) 1 tyrone PRN QID PRN TP MUSCLE PAIN; Start 08/23/17 at 14:00 Al Hydroxide/Mg Hydroxide (Mylanta Plus Xs) 15 ml PRN AFTMEALHC PRN PO DYSPEPSIA; Start 08/23/17 at 14:00 Magnesium Hydroxide (Milk Of Magnesia) 2,400 mg PRN QHS PRN PO CONSTIPATION; Start 08/23/17 at 14:00 Nicotine (Nicoderm Cq 21mg) 1 patch DAILY TD Last administered on 09/02/17at 08: 12; Start 08/24/17 at 09:00 Donepezil HCl (Aricept) 5 mg DAILY PO Last administered on 09/02/17at 08:11; Start 08/24/17 at 09:00 Sertraline HCl (Zoloft) 50 mg DAILY PO Last administered on 08/25/17at 07:55; Start 08/24/17 at 09:00; Stop 08/25/17 at 09:10; Status DC Pneumococcal Polyvalent Vaccine (Pneumovax 23) 0.5 ml ONCE ONCE VAX IM ; Start 08/24/17 at 09:00; Stop 08/24/17 at 09:01; Status DC Diltiazem HCl (Cardizem 24hr Cd) 180 mg DAILY PO Last administered on 08/29/17 08:06; Start 08/24/17 at 09:00; Stop 08/29/17 at 17:24; Status DC Metoprolol Tartrate (Lopressor) 25 mg BID PO Last administered on 09/02/17 20: 33; Start 08/23/17 at 21:00 Atorvastatin Calcium (Lipitor) 20 mg QHS PO Last administered on 09/02/17 20:33 ; Start 08/23/17 at 21:00 Calcium/Vitamin D (Oscal D 500mg/ 200uts) 1 tab DAILY PO Last administered on 08:11; Start 08/24/17 at 09:00 Vitamin B Complex 1 cap DAILY PO Last administered on 09/02/17 08:11; Start at 09:00 Vitamin E 1,000 unit DAILY PO Last administered on 09/02/17 08:10; Start at 09:00 Non-Formulary Medication 1 ea QODAY PO Last administered on 09/01/17 07:57; Start 08/24/17 at 09:00 Ferrous Sulfate (Feosol) 325 mg DAILYWBKFT PO Last administered on 09/02/17 08: 11; Start 08/25/17 at 08:00 Sertraline HCl (Zoloft) 75 mg DAILY PO Last administered on 09/02/17 08:11; Start 08/26/17 at 09:00 Pneumococcal Polyvalent Vaccine (Pneumovax 23) 0.5 ml ONCE ONCE VAX IM Last administered on 08/26/17 09:50; Start 08/26/17 at 09:45; Stop 08/26/17 at 09:46 ; Status DC Vitamin D (Vitamin D3) 50,000 unit WEEKLY PO Last administered on 09/02/17 08: 10; Start 08/26/17 at 18:00 Influenza Virus Vaccine Quadrival (Fluarix Quad [id number] Syringe) 0.5 ml ONCE ONCE VAX IM Last administered on 08/29/17 09:48; Start 08/29/17 at 09:00; Stop 08/29/17 at 09:01; Status DC Diltiazem HCl (Cardizem 24hr Cd) 240 mg DAILY PO Last administered on 2/5/18at 08:10; Start 08/30/17 at 09:00 Active Scripts Active Reported Calcium 500 + Vit D 400 Tablet (Calcium Carbonate/Vitamin D3) 1 Each Tablet 1 Each PO DAILY Vitamin E (Vitamin E Acetate) 1,000 Unit Capsule 1,000 Unit PO DAILY B Complex With Vitamin C (Vitamin B Complex & Vit C No.3) 1 Each Capsule 1 Each PO DAILY Simvastatin 40 Mg Tablet 40 Mg PO HS Diltiazem 24HR Cd (Diltiazem Hcl) 180 Mg Cap.er.24h 180 Mg PO DAILY Metoprolol Tartrate 25 Mg Tablet 25 Mg PO BID Zoloft (Sertraline Hcl) 50 Mg Tablet 50 Mg PO DAILY Donepezil Hcl 5 Mg Tablet 5 Mg PO DAILY I have reviewed the current psychotropics carefully including drug interactions. Risk benefit ratio favors no change other than as noted in my dictated progress note. Diagnosis: Problems: (1) Dementia (2) Aggressive behavior (3) Medical clearance for psychiatric admission (4) Dementia with behavioral disturbance (5) Anxiety disorder (6) Dementia in Alzheimer's disease with delusions (7) Dementia in Alzheimer's disease with depression (8) Dementia, vascular, with delusions (9) Dementia, vascular, with depression (10) Impulse control disorder ANTONIA GARRIDO MD Sep 02, 2017 21:17
--- NOTE | 2017-09-03 04:44 | PN ---
DATE: 09/01/2017 This is a late entry for 09/01/2017 covers elements not covered in my initial note of 09/01/2017. SUBJECTIVE: I met with the patient in the evening of 09/01/2017 and reviewed information from Dr. Rea, who covered for me over the past 1 week. The patient remains confused, withdrawn to her room, pleasant, compliant. Information from social service staff indicates she has had many conflicts with her daughter. REVIEW OF SYSTEMS: No CV, , pulmonary, eye system symptoms on review. Reliability poor. MENTAL STATUS EXAM: Oriented to herself. Insight, judgment, recent and remote memory, attention, concentration, fund of knowledge poor, consistent with her diagnosis, mentioned in my initial note. IMPRESSION: Major neurocognitive disorder, Alzheimer, vascular with depression, delusion, behavioral disturbance. PLAN: Continue current psychotropics for now. MAN Christiane GARRIDO MD DR: CHRISTINA/carloz JOB#: [id number] / [id number]
[2017-09-03 05:51] VITALS: BP 154/79
[2017-09-03] MEDS: VITAMIN B COMPLEX CAPSULE. PO SCH (07:50)
[2017-09-03] MEDS: FERROUS SULFATE 325 MG TABLET. PO SCH (07:51)
[2017-09-03] MEDS: DONEPEZIL HCL 5 MG TABLET. PO SCH (07:51)
[2017-09-03] MEDS: CALCIUM CARB/VIT D3 500/200 TABLET PO SCH (07:51)
[2017-09-03] MEDS: SERTRALINE 50 MG TABLET. PO SCH (07:51)
[2017-09-03] MEDS: METOPROLOL TART IMMED RELEASE 25 MG TABLET PO SCH ×2 (07:51→20:12)
[2017-09-03] MEDS: VITAMIN E 1,000 UNIT CAPSULE. PO SCH (07:51)
[2017-09-03] MEDS: POTASSIUM GLUCONATE 99 MG PO SCH (07:51)
[2017-09-03] MEDS: NICOTINE 21MG PATCH. TD SCH (07:52)
[2017-09-03 15:50] VITALS: BP 133/80
[2017-09-03] MEDS: ATORVASTATIN CALCIUM 20 MG TABLET PO SCH (20:13)
--- NOTE | 2017-09-03 20:13 | PDOC ---
Exam Note: Cameron Note: Please also refer to the separate dictated note~for this date of service dictated separately.~Patient seen individually. Discussed the patient with Nursing staff reviewed the chart.~Reviewed interim history and current functioning. Reviewed vital signs,~Labs/ Radiology~and current medications noted below. Continue current treatment with the changes noted in the dictated addendum note Assessment: Vital Signs: Vital Signs Date Time Temp Pulse Resp B/P (MAP) Pulse Ox O2 Delivery O2 Flow Rate FiO2 09/03/17 15:50 97.9 64 16 133/80 (97) 95 09/01/17 06:11 Room Air I&O Intake and Output 09/03/17 07:00 Intake Total 1200 ml Balance 1200 ml Intake Oral 1200 ml # Bowel Movements 1 Current Medications: Meds: Current Medications Acetaminophen (Tylenol) 650 mg PRN Q6HRS PRN PO PAIN / TEMP Last administered on 08/28/17at 22:46; Start 08/23/17 at 14:00 Multi-Ingredient Ointment (Analgesic Minerva) 1 tyrone PRN QID PRN TP MUSCLE PAIN; Start 08/23/17 at 14:00 Al Hydroxide/Mg Hydroxide (Mylanta Plus Xs) 15 ml PRN AFTMEALHC PRN PO DYSPEPSIA; Start 08/23/17 at 14:00 Magnesium Hydroxide (Milk Of Magnesia) 2,400 mg PRN QHS PRN PO CONSTIPATION; Start 08/23/17 at 14:00 Nicotine (Nicoderm Cq 21mg) 1 patch DAILY TD Last administered on 09/03/17at 07: 52; Start 08/24/17 at 09:00 Donepezil HCl (Aricept) 5 mg DAILY PO Last administered on 09/03/17at 07:51; Start 08/24/17 at 09:00 Sertraline HCl (Zoloft) 50 mg DAILY PO Last administered on 08/25/17at 07:55; Start 08/24/17 at 09:00; Stop 08/25/17 at 09:10; Status DC Pneumococcal Polyvalent Vaccine (Pneumovax 23) 0.5 ml ONCE ONCE VAX IM ; Start 08/24/17 at 09:00; Stop 08/24/17 at 09:01; Status DC Diltiazem HCl (Cardizem 24hr Cd) 180 mg DAILY PO Last administered on 08/29/17 08:06; Start 08/24/17 at 09:00; Stop 08/29/17 at 17:24; Status DC Metoprolol Tartrate (Lopressor) 25 mg BID PO Last administered on 09/03/17 07: 51; Start 08/23/17 at 21:00 Atorvastatin Calcium (Lipitor) 20 mg QHS PO Last administered on 09/02/17 20:33 ; Start 08/23/17 at 21:00 Calcium/Vitamin D (Oscal D 500mg/ 200uts) 1 tab DAILY PO Last administered on 07:51; Start 08/24/17 at 09:00 Vitamin B Complex 1 cap DAILY PO Last administered on 09/03/17 07:50; Start at 09:00 Vitamin E 1,000 unit DAILY PO Last administered on 09/03/17 07:51; Start at 09:00 Non-Formulary Medication 1 ea QODAY PO Last administered on 09/03/17 07:51; Start 08/24/17 at 09:00 Ferrous Sulfate (Feosol) 325 mg DAILYWBKFT PO Last administered on 09/03/17 07: 51; Start 08/25/17 at 08:00 Sertraline HCl (Zoloft) 75 mg DAILY PO Last administered on 09/03/17 07:51; Start 08/26/17 at 09:00 Pneumococcal Polyvalent Vaccine (Pneumovax 23) 0.5 ml ONCE ONCE VAX IM Last administered on 08/26/17 09:50; Start 08/26/17 at 09:45; Stop 08/26/17 at 09:46 ; Status DC Vitamin D (Vitamin D3) 50,000 unit WEEKLY PO Last administered on 09/02/17 08: 10; Start 08/26/17 at 18:00 Influenza Virus Vaccine Quadrival (Fluarix Quad [id number] Syringe) 0.5 ml ONCE ONCE VAX IM Last administered on 08/29/17 09:48; Start 08/29/17 at 09:00; Stop 08/29/17 at 09:01; Status DC Diltiazem HCl (Cardizem 24hr Cd) 240 mg DAILY PO Last administered on 09/03/17 07:51; Start 08/30/17 at 09:00 Active Scripts Active Reported Calcium 500 + Vit D 400 Tablet (Calcium Carbonate/Vitamin D3) 1 Each Tablet 1 Each PO DAILY Vitamin E (Vitamin E Acetate) 1,000 Unit Capsule 1,000 Unit PO DAILY B Complex With Vitamin C (Vitamin B Complex & Vit C No.3) 1 Each Capsule 1 Each PO DAILY Simvastatin 40 Mg Tablet 40 Mg PO HS Diltiazem 24HR Cd (Diltiazem Hcl) 180 Mg Cap.er.24h 180 Mg PO DAILY Metoprolol Tartrate 25 Mg Tablet 25 Mg PO BID Zoloft (Sertraline Hcl) 50 Mg Tablet 50 Mg PO DAILY Donepezil Hcl 5 Mg Tablet 5 Mg PO DAILY I have reviewed the current psychotropics carefully including drug interactions. Risk benefit ratio favors no change other than as noted in my dictated progress note. Diagnosis: Problems: (1) Dementia (2) Aggressive behavior (3) Medical clearance for psychiatric admission (4) Dementia with behavioral disturbance (5) Anxiety disorder (6) Dementia in Alzheimer's disease with delusions (7) Dementia in Alzheimer's disease with depression (8) Dementia, vascular, with delusions (9) Dementia, vascular, with depression (10) Impulse control disorder ANTONIA GARRIDO MD Sep 03, 2017 20:13
[2017-09-03] MEDS: ACETAMINOPHEN 325 MG TABLET PO PRN (20:42)
--- NOTE | 2017-09-03 22:56 | PN ---
DATE: 09/02/2017 PSYCHIATRIC PROGRESS NOTE This late entry, date of service 09/02/2017 covers elements not covered in my initial note of 09/02/2017. SUBJECTIVE: I met with the patient in her room evening of 09/02/2017. Overall, the patient remains confused, gets a little anxious at times, but not aggressive. REVIEW OF SYSTEMS: No CV, , pulmonary, eye, ENT system symptoms on review. Review of her history indicates much conflict with her daughter. MENTAL STATUS EXAM: Oriented to herself. Insight, judgment, recent and remote memory, attention, concentration, fund of knowledge poor, consistent with her diagnosis mentioned in my initial note. IMPRESSION: Major neurocognitive disorder, Alzheimer, vascular with depression, delusion, behavioral disturbance. Rest unchanged. PLAN: Continue current psychotropics. Adjust further as clinically indicated. MAN Christiane GARRIDO MD DR: CHRISTINA/carloz JOB#: [id number] / [id number]
[2017-09-04] MEDS ORDERED: ACET325T9 PO (01:31)
[2017-09-04] MEDS ORDERED: CHOL500021 PO (01:33)
[2017-09-04] MEDS ORDERED: FERR325T72 PO (01:34)
[2017-09-04] MEDS ORDERED: MAG30ORA2 PO (01:40)
[2017-09-04] MEDS ORDERED: MAGN2400 PO (01:41)
[2017-09-04] MEDS ORDERED: METH29OI TP (01:42)
[2017-09-04] MEDS ORDERED: NICO1PAT21 TD (01:44)
[2017-09-04] MEDS ORDERED: POTA99TA3 PO (01:45)
[2017-09-04 06:12] VITALS: BP 167/95
[2017-09-04] MEDS ORDERED: DILT120C80 PO (07:36)
[2017-09-04] MEDS ORDERED: ATOR20TA PO (07:41)
[2017-09-04] MEDS: CALCIUM CARB/VIT D3 500/200 TABLET PO SCH (08:11)
[2017-09-04] MEDS: METOPROLOL TART IMMED RELEASE 25 MG TABLET PO SCH (08:11)
[2017-09-04] MEDS: SERTRALINE 50 MG TABLET. PO SCH (08:11)
[2017-09-04] MEDS: VITAMIN B COMPLEX CAPSULE. PO SCH (08:11)
[2017-09-04 08:12] VITALS: BP 167/95
[2017-09-04] MEDS: DONEPEZIL HCL 5 MG TABLET. PO SCH (08:12)
[2017-09-04] MEDS: FERROUS SULFATE 325 MG TABLET. PO SCH (08:12)
[2017-09-04] MEDS: NICOTINE 21MG PATCH. TD SCH (08:12)
[2017-09-04] MEDS: VITAMIN E 1,000 UNIT CAPSULE. PO SCH (08:12)
--- NOTE | 2017-09-04 19:10 | PDOC ---
Exam Note: Cameron Note: Please also refer to the separate dictated note~for this date of service dictated separately.~Patient seen individually. Discussed the patient with Nursing staff reviewed the chart.~Reviewed interim history and current functioning. Reviewed vital signs,~Labs/ Radiology~and current medications noted below. Continue current treatment with the changes noted in the dictated addendum note Assessment: Vital Signs: Vital Signs Date Time Temp Pulse Resp B/P (MAP) Pulse Ox O2 Delivery O2 Flow Rate FiO2 09/04/17 08:12 67 167/95 09/04/17 06:12 97.4 16 97 09/01/17 06:11 Room Air I&O Intake and Output 09/04/17 07:00 Intake Total 1320 ml Balance 1320 ml Intake Oral 1320 ml Current Medications: Meds: Current Medications Acetaminophen (Tylenol) 650 mg PRN Q6HRS PRN PO PAIN / TEMP Last administered on 09/03/17at 20:42; Start 08/23/17 at 14:00; Stop 09/04/17 at 10:57; Status DC Multi-Ingredient Ointment (Analgesic Morse) 1 liban PRN QID PRN TP MUSCLE PAIN; Start 08/23/17 at 14:00; Stop 09/04/17 at 10:57; Status DC Al Hydroxide/Mg Hydroxide (Mylanta Plus Xs) 15 ml PRN AFTMEALHC PRN PO DYSPEPSIA; Start 08/23/17 at 14:00; Stop 09/04/17 at 10:57; Status DC Magnesium Hydroxide (Milk Of Magnesia) 2,400 mg PRN QHS PRN PO CONSTIPATION; Start 08/23/17 at 14:00; Stop 09/04/17 at 10:57; Status DC Nicotine (Nicoderm Cq 21mg) 1 patch DAILY TD Last administered on 09/04/17at 08: 12; Start 08/24/17 at 09:00; Stop 09/04/17 at 10:57; Status DC Donepezil HCl (Aricept) 5 mg DAILY PO Last administered on 09/04/17at 08:12; Start 08/24/17 at 09:00; Stop 09/04/17 at 10:57; Status DC Sertraline HCl (Zoloft) 50 mg DAILY PO Last administered on 08/25/17at 07:55; Start 08/24/17 at 09:00; Stop 08/25/17 at 09:10; Status DC Pneumococcal Polyvalent Vaccine (Pneumovax 23) 0.5 ml ONCE ONCE VAX IM ; Start 08/24/17 at 09:00; Stop 08/24/17 at 09:01; Status DC Diltiazem HCl (Cardizem 24hr Cd) 180 mg DAILY PO Last administered on 08/29/17at 08:06; Start 08/24/17 at 09:00; Stop 08/29/17 at 17:24; Status DC Metoprolol Tartrate (Lopressor) 25 mg BID PO Last administered on 09/04/17at 08: 11; Start 08/23/17 at 21:00; Stop 09/04/17 at 10:57; Status DC Atorvastatin Calcium (Lipitor) 20 mg QHS PO Last administered on 09/03/17at 20:13 ; Start 08/23/17 at 21:00; Stop 09/04/17 at 10:57; Status DC Calcium/Vitamin D (Oscal D 500mg/ 200uts) 1 tab DAILY PO Last administered on at 08:11; Start 08/24/17 at 09:00; Stop 09/04/17 at 10:57; Status DC Vitamin B Complex 1 cap DAILY PO Last administered on 09/04/17at 08:11; Start at 09:00; Stop 09/04/17 at 10:57; Status DC Vitamin E 1,000 unit DAILY PO Last administered on 09/04/17at 08:12; Start at 09:00; Stop 09/04/17 at 10:57; Status DC Non-Formulary Medication 1 ea QODAY PO Last administered on 09/03/17at 07:51; Start 08/24/17 at 09:00; Stop 09/04/17 at 10:57; Status DC Ferrous Sulfate (Feosol) 325 mg DAILYWBKFT PO Last administered on 09/04/17at 08: 12; Start 08/25/17 at 08:00; Stop 09/04/17 at 10:57; Status DC Sertraline HCl (Zoloft) 75 mg DAILY PO Last administered on 09/04/17at 08:11; Start 08/26/17 at 09:00; Stop 09/04/17 at 10:57; Status DC Pneumococcal Polyvalent Vaccine (Pneumovax 23) 0.5 ml ONCE ONCE VAX IM Last administered on 08/26/17at 09:50; Start 08/26/17 at 09:45; Stop 08/26/17 at 09:46 ; Status DC Vitamin D (Vitamin D3) 50,000 unit WEEKLY PO Last administered on 09/02/17at 08: 10; Start 08/26/17 at 18:00; Stop 09/04/17 at 10:57; Status DC Influenza Virus Vaccine Quadrival (Fluarix Quad [id number] Syringe) 0.5 ml ONCE ONCE VAX IM Last administered on 08/29/17at 09:48; Start 08/29/17 at 09:00; Stop 08/29/17 at 09:01; Status DC Diltiazem HCl (Cardizem 24hr Cd) 240 mg DAILY PO Last administered on 09/04/17at 08:12; Start 08/30/17 at 09:00; Stop 09/04/17 at 10:57; Status DC Active Scripts Active Reported Lipitor (Atorvastatin Calcium) 20 Mg Tablet 1 Tab PO QHS Diltiazem 24HR Cd (Diltiazem Hcl) 120 Mg Cap.er.24h 2 Cap PO DAILY Potassium Gluconate 99 Mg Tablet 99 Mg PO QODAY NICODERM CQ 21mg (Nicotine) 1 Each Patch.td24 1 Patch TD DAILY Analgesic Morse (Methyl Salicylate/Menthol) 28 Gm Oint...g. 1 Liban TP PRN QID PRN Milk Of Magnesia (Magnesium Hydroxide) 2,400 Mg/10 Ml Oral.susp 2,400 Mg PO PRN QHS Mag-Al Plus Xs Suspension (Mag Hydrox/Al Hydrox/Simeth) 30 Ml Oral.susp 15 Ml PO PRN AFTMEALHC PRN Feosol (Ferrous Sulfate) 325 Mg Tablet 325 Mg PO DAILYWBKFT D3-50 (Cholecalciferol (Vitamin D3)) 50,000 Unit Capsule 50,000 Unit PO WEEKLY ON SATURDAY Tylenol (Acetaminophen) 325 Mg Tablet 650 Mg PO PRN Q6HRS PRN Calcium 500 + Vit D 400 Tablet (Calcium Carbonate/Vitamin D3) 1 Each Tablet 1 Each PO DAILY Vitamin E (Vitamin E Acetate) 1,000 Unit Capsule 1,000 Unit PO DAILY B Complex With Vitamin C (Vitamin B Complex & Vit C No.3) 1 Each Capsule 1 Each PO DAILY Metoprolol Tartrate 25 Mg Tablet 25 Mg PO BID Zoloft (Sertraline Hcl) 50 Mg Tablet 75 Mg PO DAILY Donepezil Hcl 5 Mg Tablet 5 Mg PO DAILY I have reviewed the current psychotropics carefully including drug interactions. Risk benefit ratio favors no change other than as noted in my dictated progress note. Diagnosis: Problems: (1) Dementia with behavioral disturbance (2) Anxiety disorder (3) Dementia in Alzheimer's disease with delusions (4) Dementia in Alzheimer's disease with depression (5) Dementia, vascular, with delusions (6) Dementia, vascular, with depression (7) Impulse control disorder ANTONIA GARRIDO MD Sep 04, 2017 19:10
--- NOTE | 2017-09-04 22:11 | PN ---
DATE: 09/03/2017 This is a late entry for 09/03/2017 and covers elements not covered in my initial note of 09/03/2017. I met with the patient the evening of 09/03/2017. The patient remains confused, withdrawn, spends much time in her room, which is where I met with her. She has not been agitated, aggressive. REVIEW OF SYSTEMS: No CV, , pulmonary, eye, ENT system symptoms on review. Reliability poor, pleasant, verbal, smiling as I met with her. MENTAL STATUS EXAM: Oriented to herself. Insight, judgment, recent and remote memory, attention, concentration, fund of knowledge poor, consistent with her diagnosis as mentioned in my initial note. IMPRESSION: Major neurocognitive disorder, Alzheimer, vascular with depression, delusion, behavioral disturbance. PLAN: Continue current psychotropics, Zoloft, Aricept. Adjust further as clinically indicated. MAN Christiane GARRIDO MD DR: CHRISTINA/carloz JOB#: [id number] / [id number]
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
== END 2017-09-04 09:30 | DRG 884 ==
LOC: EEVIPCON 10:52 → ER 10:52 → GEROPSY 13:30
PROVIDERS: ADMIT Psychiatry & Neurology Psychiatry; ATTEND Psychiatry & Neurology Psychiatry
DX: F01.51 Vascular dementia, unspecified severity, with behavioral disturbance (principal); G30.9 Alzheimer's disease, unspecified; F02.81 Dementia in other diseases classified elsewhere, unspecified severity, with behavioral disturbance; E03.9 Hypothyroidism, unspecified; E61.1 Iron deficiency; E78.5 Hyperlipidemia, unspecified; F17.210 Nicotine dependence, cigarettes, uncomplicated; F22 Delusional disorders; F32.9 Major depressive disorder, single episode, unspecified; F41.9 Anxiety disorder, unspecified; F42.9 Obsessive-compulsive disorder, unspecified; F63.9 Impulse disorder, unspecified; I10 Essential (primary) hypertension; I25.2 Old myocardial infarction; Z79.899 Other long term (current) drug therapy; Z85.3 Personal history of malignant neoplasm of breast; Z86.73 Personal history of transient ischemic attack (TIA), and cerebral infarction without residual deficits; Z87.81 Personal history of (healed) traumatic fracture; Z91.81 History of falling; Z90.11 Acquired absence of right breast and nipple
CPT/HCPCS: 36415; 80053; 80061; 81001; 82306; 82607; 83036; 83540; 83550; 83735; 84436; 84443; 84480; 85025; 86593; 90686; 90732; 93005; 97161; 99407; 99285-25